=== PATIENT | female | born 1965 | race Hispanic/Latino ===

== ENCOUNTER 2021-09-03 11:25 | Inpatient (IN) | payer SELFPAY ==
[~2021-09-03] VITALS: Ht 154.9 cm; Wt 77.1 kg
[2021-09-03] MEDS ORDERED: SODIUM CHLORIDE 0.9% 1000ML 1,000 ML IV ONE (11:45)
[2021-09-03] MEDS ORDERED: CEFTRIAXONE 1 GM VIAL IV NR (11:45)
[2021-09-03] MEDS ORDERED: Vancomycin IV 1 GM in SODIUM CHLORIDE 0.9% 250ML 250 ML IV ONE (11:45)
[2021-09-03 12:05] LABS: BASOPHILS % 0.4 % (0.0-1.0); EOSINOPHILS # (AUTO) 0.1 (0.0-0.4); EOSINOPHILS % 1.2 % (0.0-6.0); HEMATOCRIT 37.2 % (34.2-44.1); LYMPHOCYTES # (AUTO) 2.1 (1.0-3.2); LYMPHOCYTES % 28.5 % (18.0-39.1); MEAN CORPUSCULAR HEMOGLOBIN 27.5 pg (28-32); MEAN CORPUSCULAR HGB CONC 32.3 g/dL (31-35); MEAN CORPUSCULAR VOLUME 85.3 fL (81-99); MONOCYTES # (AUTO) 0.4 (0.2-0.8); MONOCYTES % 5.3 % (4.4-11.3); NEUTROPHILS # (AUTO) 4.7 (2.1-6.9); NEUTROPHILS % 64.3 % (38.7-80.0); PLATELET COUNT 469 x10e3/uL (140-360); RED BLOOD COUNT 4.36 x10e6/uL (3.6-5.1)
[2021-09-03 12:14] LABS: INR 0.77; PARTIAL THROMBOPLASTIN TIME 24.1 seconds (23.8-35.5); PROTHROMBIN TIME 11.5 seconds (11.9-14.5)
[2021-09-03 12:24] LABS: ALBUMIN 2.3 g/dL (3.5-5.0); ALBUMIN/GLOBULIN RATIO 0.5 (0.8-2.0); ANION GAP 15.5 mmol/L (8-16); CALCIUM 8.9 mg/dL (8.4-10.2); CREATININE, SERUM 0.89 mg/dL (0.57-1.11); POTASSIUM 4.5 mmol/L (3.5-5.1)
[2021-09-03] MEDS ORDERED: SODIUM CHLORIDE 0.9% 100 ML ONE (12:31)
[2021-09-03] MEDS ORDERED: ONDANSETRON HCL INJ 2MG/ML 2ML 2 MG/ML VIAL IV PRN ×2 (14:15→17:15)
[2021-09-03] MEDS ORDERED: DEXTROSE 50% SYRINGE 50 ML IV PRN (14:15)
[2021-09-03] MEDS: INSULIN REGULAR, HUMAN 100 UNIT/1 ML SQ SCH ×2 (14:48→21:26)
[2021-09-03 15:27] VITALS: BP 173/91
[2021-09-03 15:47] VITALS: BP 173/91
[2021-09-03 16:00] VITALS: BP 173/91
[2021-09-03] MEDS ORDERED: ATORVASTATIN CA20 MG PO (16:11)
[2021-09-03] MEDS ORDERED: PIOGLITAZONE45 MG PO (16:11)
[2021-09-03] MEDS ORDERED: AMLODIPINE BESY10 MG PO (16:11)
[2021-09-03] MEDS ORDERED: LISINOPRIL10 MG PO (16:11)
[2021-09-03] MEDS ORDERED: HYDROCHLOROTHIA25 MG PO (16:11)
[2021-09-03] MEDS ORDERED: METFORMIN HCL850 MG PO (16:11)
[2021-09-03] MEDS ORDERED: HUMALOG MI100 UNIT/2 SQ (16:13)
[2021-09-03] MEDS ORDERED: ACETAMINOPHEN 325 MG TAB PO PRN ×2 (16:15→17:15)
[2021-09-03] MEDS ORDERED: HYDRALAZINE HCL 20 MG/ML VIAL IV PRN (17:15)
[2021-09-03] MEDS ORDERED: POLYETHYLENE GLYCOL 3350 17 GM PACK PO PRN (17:15)
[2021-09-03] MEDS ORDERED: TEMAZEPAM 7.5 MG CAP PO PRN (17:15)
[2021-09-03] MEDS: FAMOTIDINE 20 MG TAB PO SCH (17:57)
[2021-09-03] MEDS: ASCORBIC ACID 500 MG TAB PO SCH (17:57)
[2021-09-03] MEDS: MAGNESIUM OXIDE 400 MG TAB PO SCH (17:57)
[2021-09-03] MEDS: DOCUSATE SODIUM 100 MG CAP PO SCH (17:57)
[2021-09-03] MEDS: ZINC SULFATE 220 MG CAP PO SCH (17:57)
[2021-09-03] MEDS: OYST-CAL-D 500MG TABLET PO SCH (17:57)
[2021-09-03 20:00] VITALS: BP 165/92
[2021-09-03 21:00] VITALS: BP 165/92
[2021-09-03] MEDS ORDERED: INSULIN REGULAR, HUMAN 100 UNIT/1 ML SQ SCH (21:00)
[2021-09-03] MEDS: ATORVASTATIN 20 MG TAB PO SCH (21:22)
[2021-09-04] VITALS (11 sets, daily range): BP systolic 124–188; BP diastolic 61–97
[2021-09-04 05:18] LABS: BASOPHILS % 0.5 % (0.0-1.0); EOSINOPHILS # (AUTO) 0.1 (0.0-0.4); HEMATOCRIT 30.9 % (34.2-44.1); HEMOGLOBIN 10.1 g/dL (12.0-16.0); LYMPHOCYTES # (AUTO) 2.7 (1.0-3.2); LYMPHOCYTES % 36.1 % (18.0-39.1); MEAN CORPUSCULAR HEMOGLOBIN 27.7 pg (28-32); MEAN CORPUSCULAR HGB CONC 32.7 g/dL (31-35); MEAN CORPUSCULAR VOLUME 84.7 fL (81-99); MONOCYTES # (AUTO) 0.6 (0.2-0.8); NEUTROPHILS % 54.1 % (38.7-80.0); PLATELET COUNT 398 x10e3/uL (140-360); RED BLOOD COUNT 3.65 x10e6/uL (3.6-5.1); RED CELL DISTRIBUTION WIDTH 14.2 % (11.7-14.4)
[2021-09-04 05:35] LABS: ANION GAP 12.9 mmol/L (8-16); CALCIUM 8.1 mg/dL (8.4-10.2); CREATININE, SERUM 0.72 mg/dL (0.57-1.11); POTASSIUM 3.9 mmol/L (3.5-5.1)
[2021-09-04 05:59] LABS: CHOL/HDL RATIO 4.2 (3.0-3.6); MAGNESIUM 1.7 MG/DL (1.3-2.1); PHOSPHORUS 3.4 MG/DL (2.3-4.7)
[2021-09-04 06:19] LABS: THYROID STIMULATING HORMONE 2.594 uIU/mL (0.350-4.940)
[2021-09-04] MEDS: MAGNESIUM OXIDE 400 MG TAB PO SCH ×2 (08:21→17:17)
[2021-09-04] MEDS: MULTIVITAMINS/MINERALS TAB PO SCH (08:21)
[2021-09-04] MEDS: FAMOTIDINE 20 MG TAB PO SCH ×2 (08:21→16:27)
[2021-09-04] MEDS: METFORMIN HCL 850 MG TAB PO SCH ×3 (08:23→17:16)
[2021-09-04] MEDS: ASCORBIC ACID 500 MG TAB PO SCH ×2 (08:23→17:16)
[2021-09-04] MEDS: ZINC SULFATE 220 MG CAP PO SCH ×2 (08:23→17:18)
[2021-09-04] MEDS: DOCUSATE SODIUM 100 MG CAP PO SCH ×2 (08:23→17:17)
[2021-09-04] MEDS: LISINOPRIL 20 MG TAB PO SCH (08:23)
[2021-09-04] MEDS: PIOGLITAZONE HCL 45 MG TAB PO SCH (08:24)
[2021-09-04] MEDS: AMLODIPINE BESYLATE 10 MG TAB PO SCH (08:24)
[2021-09-04] MEDS: OYST-CAL-D 500MG TABLET PO SCH ×2 (08:24→17:16)
[2021-09-04] MEDS ORDERED: ONDANSETRON HCL 4 MG ORAL DISINTEGRATING TAB PO PRN (10:15)
[2021-09-04] MEDS: HYDROCHLOROTHIAZIDE 25 MG TAB PO SCH (11:41)
[2021-09-04] MEDS: INS LISP PRO/LISP HUMAN 75/25 100 UNITS/ML VIAL SC SCH (11:45)
[2021-09-04] MEDS: INSULIN REGULAR, HUMAN 100 UNIT/1 ML SQ SCH ×4 (11:48→20:40)
[2021-09-04] MEDS ORDERED: ENOXAPARIN 30 MG/0.3 ML SYR SC SCH (17:00)
[2021-09-04] MEDS: ATORVASTATIN 20 MG TAB PO SCH (20:35)
[2021-09-05 04:10] VITALS: BP 154/85
[2021-09-05 05:53] LABS: BASOPHILS % 0.5 % (0.0-1.0); EOSINOPHILS # (AUTO) 0.1 (0.0-0.4); EOSINOPHILS % 1.5 % (0.0-6.0); HEMATOCRIT 32.3 % (34.2-44.1); HEMOGLOBIN 10.3 g/dL (12.0-16.0); LYMPHOCYTES # (AUTO) 2.5 (1.0-3.2); LYMPHOCYTES % 42.2 % (18.0-39.1); MEAN CORPUSCULAR HEMOGLOBIN 27.5 pg (28-32); MEAN CORPUSCULAR HGB CONC 31.9 g/dL (31-35); MEAN CORPUSCULAR VOLUME 86.4 fL (81-99); MONOCYTES # (AUTO) 0.5 (0.2-0.8); MONOCYTES % 8.1 % (4.4-11.3); NEUTROPHILS # (AUTO) 2.8 (2.1-6.9); NEUTROPHILS % 47.5 % (38.7-80.0); PLATELET COUNT 408 x10e3/uL (140-360); RED BLOOD COUNT 3.74 x10e6/uL (3.6-5.1); RED CELL DISTRIBUTION WIDTH 14.5 % (11.7-14.4)
[2021-09-05 06:16] LABS: CALCIUM 8.7 mg/dL (8.4-10.2); CREATININE, SERUM 0.79 mg/dL (0.57-1.11)
[2021-09-05] MEDS: INS LISP PRO/LISP HUMAN 75/25 100 UNITS/ML VIAL SC SCH (07:30)
[2021-09-05] MEDS: INSULIN REGULAR, HUMAN 100 UNIT/1 ML SQ SCH ×2 (07:30→11:30)
[2021-09-05 08:10] VITALS: BP 188/88
[2021-09-05] MEDS: METFORMIN HCL 850 MG TAB PO SCH ×2 (08:55→12:00)
[2021-09-05] MEDS: PIOGLITAZONE HCL 45 MG TAB PO SCH (08:55)
[2021-09-05] MEDS: OYST-CAL-D 500MG TABLET PO SCH (08:55)
[2021-09-05] MEDS: FAMOTIDINE 20 MG TAB PO SCH (08:55)
[2021-09-05] MEDS: MULTIVITAMINS/MINERALS TAB PO SCH (08:55)
[2021-09-05] MEDS: DOCUSATE SODIUM 100 MG CAP PO SCH (08:56)
[2021-09-05] MEDS: AMLODIPINE BESYLATE 10 MG TAB PO SCH (08:56)
[2021-09-05] MEDS: ZINC SULFATE 220 MG CAP PO SCH (08:56)
[2021-09-05] MEDS: ASCORBIC ACID 500 MG TAB PO SCH (08:56)
[2021-09-05] MEDS: LISINOPRIL 20 MG TAB PO SCH (08:56)
[2021-09-05] MEDS: MAGNESIUM OXIDE 400 MG TAB PO SCH (08:57)
[2021-09-05] MEDS: HYDROCHLOROTHIAZIDE 25 MG TAB PO SCH (08:57)
[2021-09-05 11:46] VITALS: BP 186/88
[2021-09-05] MEDS ORDERED: DOXYCYCLINE HY100 MG PO (13:23)
[2021-09-05 15:37] VITALS: BP 145/71
== END 2021-09-05 16:21 | disposition home or self-care (01) | DRG 638 ==
LOC: ER 11:30 → ERHOLD 14:14 → MED/SURG3 15:32 → OBSVTOIN 09-04 10:20
PROVIDERS: ADMIT Internal Medicine; ATTEND Internal Medicine
DX: E11.621 Type 2 diabetes mellitus with foot ulcer (principal); E87.1 Hypo-osmolality and hyponatremia; L03.116 Cellulitis of left lower limb; L97.528 Non-pressure chronic ulcer of other part of left foot with other specified severity; E11.69 Type 2 diabetes mellitus with other specified complication; S92.422B Displaced fracture of distal phalanx of left great toe, initial encounter for open fracture; W20.8XXA Other cause of strike by thrown, projected or falling object, initial encounter; Y93.9 Activity, unspecified; E11.42 Type 2 diabetes mellitus with diabetic polyneuropathy; Z79.899 Other long term (current) drug therapy; E78.49 Other hyperlipidemia; Z20.822 Contact with and (suspected) exposure to COVID-19; E11.65 Type 2 diabetes mellitus with hyperglycemia
CPT/HCPCS: 0223U; 36415; 80048; 80053; 80061; 82948; 83036; 83605; 83735; 84100; 84443; 85025; 85610; 85730; 87040; 93925; 94799; 97139; 99251; 99284; G0378; J0360; J0696; J1650; J1815; J1817; J3370; J7030; J7050

== ENCOUNTER 2022-04-01 11:16 | Inpatient (IN) | payer SELFPAY ==
[~2022-04-01] VITALS: Ht 152.4 cm; Wt 85.0 kg
[~2022-04-01 11:16] MED LIST: AMLODIPINE BESY10 MG PO; ATORVASTATIN CA20 MG PO; DOXYCYCLINE HY100 MG PO; HUMALOG MI100 UNIT/2 SQ; HYDROCHLOROTHIA25 MG PO; LISINOPRIL10 MG PO; MEDROL4 M2 PO; METFORMIN HCL850 MG PO; PIOGLITAZONE45 MG PO
[2022-04-01 13:58] LABS: BASOPHILS % 0.6 % (0.0-1.0); EOSINOPHILS # (AUTO) 0.1 (0.0-0.4); EOSINOPHILS % 0.9 % (0.0-6.0); HEMATOCRIT 30.1 % (34.2-44.1); HEMOGLOBIN 9.4 g/dL (12.0-16.0); LYMPHOCYTES # (AUTO) 1.8 (1.0-3.2); LYMPHOCYTES % 27.4 % (18.0-39.1); MEAN CORPUSCULAR HGB CONC 31.2 g/dL (31-35); MEAN CORPUSCULAR VOLUME 86.5 fL (81-99); MONOCYTES # (AUTO) 0.4 (0.2-0.8); MONOCYTES % 5.2 % (4.4-11.3); NEUTROPHILS # (AUTO) 4.4 (2.1-6.9); NEUTROPHILS % 65.8 % (38.7-80.0); PLATELET COUNT 297 x10e3/uL (140-360); RED BLOOD COUNT 3.48 x10e6/uL (3.6-5.1); RED CELL DISTRIBUTION WIDTH 13.7 % (11.7-14.4)
[2022-04-01 14:14] LABS: INR 0.87; PARTIAL THROMBOPLASTIN TIME 27.7 seconds (23.8-35.5)
[2022-04-01 14:18] LABS: CLARITY,URINE CLEAR (CLEAR); COLOR,URINE YELLOW (YELLOW)
[2022-04-01 14:19] LABS: KETONES,URINE NEGATIVE (NEGATIVE); LEUKOCYTE ESTERASE ,URINE NEGATIVE (NEGATIVE); NITRITE,URINE NEGATIVE (NEGATIVE); PROTEIN,URINE DIPSTICK >=300 (NEGATIVE); URINE UROBILINOGEN 0.2 mg/dL (0.2 - 1)
[2022-04-01 14:24] LABS: ALBUMIN 2.7 g/dL (3.5-5.0); ALBUMIN/GLOBULIN RATIO 0.7 (0.8-2.0); ANION GAP 13.8 mmol/L (8-16); BACTERIA,URINE FEW /HPF; CALCIUM 9.6 mg/dL (8.4-10.2); CREATININE, SERUM 0.87 mg/dL (0.57-1.11); EPITHELIAL CELLS,URINE FEW /LPF; MAGNESIUM 1.8 MG/DL (1.3-2.1); POTASSIUM 4.8 mmol/L (3.5-5.1); WBC,URINE (MAN) 0-5 /HPF (0-5)
[2022-04-01 14:31] LABS: CREATINE KINASE MB 4.3 ng/mL (0-5.0)
[2022-04-01] MEDS ORDERED: IOPAMIDOL 370 MG/ML 100 ML INFUS..BTL INJ ONE (15:39)
[2022-04-01] MEDS ORDERED: ONDANSETRON HCL INJ 2MG/ML 2ML 2 MG/ML VIAL IV PRN (16:45)
[2022-04-01] MEDS ORDERED: FUROSEMIDE INJ 10 MG/ML 4 ML VIAL IV ONE (17:00)
[2022-04-01] MEDS ORDERED: DEXTROSE 50% SYRINGE 50 ML IV PRN (17:15)
[2022-04-01] MEDS: FAMOTIDINE 20 MG/2 ML VIAL IV SCH (17:32)
[2022-04-01] MEDS ORDERED: NITROGLYCERIN 2% OINT 1 GM PKT TOP SCH (18:00)
[2022-04-01 18:19] LABS: ALBUMIN 2.7 g/dL (3.5-5.0); ALBUMIN/GLOBULIN RATIO 0.7 (0.8-2.0); ANION GAP 12.7 mmol/L (8-16); CALCIUM 9.3 mg/dL (8.4-10.2); CREATININE, SERUM 0.84 mg/dL (0.57-1.11); POTASSIUM 4.7 mmol/L (3.5-5.1)
[2022-04-01 18:27] LABS: CREATINE KINASE MB 4.2 ng/mL (0-5.0)
[2022-04-01] MEDS: ATORVASTATIN 20 MG TAB PO SCH (21:11)
[2022-04-01] MEDS: INSULIN REGULAR, HUMAN 100 UNIT/1 ML SQ SCH (21:50)
[2022-04-01] MEDS: INSULIN GLARGINE 100 UNITS/ML VIAL SQ SCH (21:50)
[2022-04-02 00:27] LABS: CREATINE KINASE MB 3.7 ng/mL (0-5.0)
[2022-04-02] MEDS: FAMOTIDINE 20 MG/2 ML VIAL IV SCH ×2 (04:43→16:57)
[2022-04-02 06:28] LABS: BASOPHILS # (AUTO) 0.1 (0.0-0.1); EOSINOPHILS # (AUTO) 0.1 (0.0-0.4); EOSINOPHILS % 1.9 % (0.0-6.0); HEMATOCRIT 26.3 % (34.2-44.1); HEMOGLOBIN 8.8 g/dL (12.0-16.0); LYMPHOCYTES % 37.6 % (18.0-39.1); MEAN CORPUSCULAR HEMOGLOBIN 29.5 pg (28-32); MEAN CORPUSCULAR HGB CONC 33.5 g/dL (31-35); MEAN CORPUSCULAR VOLUME 88.3 fL (81-99); MONOCYTES # (AUTO) 0.5 (0.2-0.8); MONOCYTES % 8.7 % (4.4-11.3); NEUTROPHILS # (AUTO) 2.7 (2.1-6.9); NEUTROPHILS % 50.6 % (38.7-80.0); PLATELET COUNT 243 x10e3/uL (140-360); RED BLOOD COUNT 2.98 x10e6/uL (3.6-5.1); RED CELL DISTRIBUTION WIDTH 14.6 % (11.7-14.4)
[2022-04-02 06:54] LABS: ALBUMIN 2.5 g/dL (3.5-5.0); ALBUMIN/GLOBULIN RATIO 0.7 (0.8-2.0); ANION GAP 12.2 mmol/L (8-16); CALCIUM 9.1 mg/dL (8.4-10.2); CREATININE, SERUM 0.83 mg/dL (0.57-1.11); POTASSIUM 4.2 mmol/L (3.5-5.1)
[2022-04-02] MEDS: INSULIN REGULAR, HUMAN 100 UNIT/1 ML SQ SCH ×4 (07:13→21:00)
[2022-04-02] MEDS: LISINOPRIL 20 MG TAB PO SCH (09:27)
[2022-04-02] MEDS: AMLODIPINE BESYLATE 10 MG TAB PO SCH (09:27)
[2022-04-02 11:58] LABS: BODY FLUID APPEARANCE SL.CLOUDY; BODY FLUID COLOR YELLOW; BODY FLUID TYPE PLEURAL; RBC,BODY FLUID 0 cells/uL; WBC,BODY FLUID 150 cells/uL
[2022-04-02] MEDS ORDERED: POLYETHYLENE GLYCOL 3350 17 GM PACK PO PRN (12:30)
[2022-04-02] MEDS ORDERED: TEMAZEPAM 15 MG CAP PO PRN (12:30)
[2022-04-02 13:10] VITALS: BP 148/80
[2022-04-02 13:46] LABS: LYMPHOCYTES,BODY FLUID 30 %; MONO/MACROPHG,BODY FLUID 29 %; NEUTROPHILS,BODY FLUID 1 %; OTHER CELLS,BODY FLUID 40 %
[2022-04-02 16:11] VITALS: BP 176/85
[2022-04-02] MEDS: MAGNESIUM OXIDE 400 MG TAB PO SCH (16:56)
[2022-04-02] MEDS: ZINC SULFATE 50 MG CAP PO SCH (16:57)
[2022-04-02] MEDS: ASCORBIC ACID 500 MG TAB PO SCH (16:57)
[2022-04-02] MEDS: DOCUSATE SODIUM 100 MG CAP PO SCH (16:57)
[2022-04-02] MEDS: FUROSEMIDE INJ 10 MG/ML 4 ML VIAL IV SCH (16:57)
[2022-04-02] MEDS: OYST-CAL-D 500MG TABLET PO SCH (16:58)
[2022-04-02 17:40] LABS: CREATININE,URINE RANDOM 26.06 mg/dL (47-110)
[2022-04-02 18:12] LABS: TOTAL PROTEIN, URINE 271.2 mg/dL (1-14)
[2022-04-02 20:00] VITALS: BP 169/79
[2022-04-02] MEDS: ATORVASTATIN 20 MG TAB PO SCH (20:33)
[2022-04-02] MEDS: ENOXAPARIN 30 MG/0.3 ML SYR SC SCH (20:33)
[2022-04-02] MEDS: INSULIN GLARGINE 100 UNITS/ML VIAL SQ SCH (21:00)
[2022-04-02 21:45] LABS: TOTAL PROTEIN 24HR, URINE 7190.1 mg/24hr (50-100); TOTAL PROTEIN, URINE 266.3 mg/dL (1-14)
[2022-04-02 23:53] VITALS: BP 164/76
[2022-04-03] VITALS (19 sets, daily range): BP systolic 119–173; BP diastolic 67–144
[2022-04-03] MEDS: METOPROLOL TARTRATE INJ 1 MG/ML VIAL IV PRN (01:47)
[2022-04-03] MEDS: ACETAMINOPHEN 325 MG TAB PO PRN ×2 (02:05→12:57)
[2022-04-03] MEDS: FAMOTIDINE 20 MG/2 ML VIAL IV SCH ×2 (05:22→17:36)
[2022-04-03 05:45] LABS: BASOPHILS % 0.6 % (0.0-1.0); EOSINOPHILS # (AUTO) 0.1 (0.0-0.4); EOSINOPHILS % 1.3 % (0.0-6.0); HEMATOCRIT 28.1 % (34.2-44.1); HEMOGLOBIN 8.9 g/dL (12.0-16.0); LYMPHOCYTES # (AUTO) 0.9 (1.0-3.2); LYMPHOCYTES % 12.8 % (18.0-39.1); MEAN CORPUSCULAR HEMOGLOBIN 27.3 pg (28-32); MEAN CORPUSCULAR HGB CONC 31.7 g/dL (31-35); MEAN CORPUSCULAR VOLUME 86.2 fL (81-99); MONOCYTES # (AUTO) 0.5 (0.2-0.8); MONOCYTES % 7.6 % (4.4-11.3); NEUTROPHILS # (AUTO) 5.2 (2.1-6.9); NEUTROPHILS % 77.4 % (38.7-80.0); PLATELET COUNT 276 x10e3/uL (140-360); RED BLOOD COUNT 3.26 x10e6/uL (3.6-5.1); RED CELL DISTRIBUTION WIDTH 13.8 % (11.7-14.4)
[2022-04-03 06:07] LABS: ANION GAP 10.1 mmol/L (8-16); CALCIUM 8.4 mg/dL (8.4-10.2); CREATININE, SERUM 0.87 mg/dL (0.57-1.11); MAGNESIUM 1.5 MG/DL (1.3-2.1); PHOSPHORUS 3.6 MG/DL (2.3-4.7); POTASSIUM 4.1 mmol/L (3.5-5.1)
[2022-04-03] MEDS ORDERED: FUROSEMIDE INJ 10 MG/ML 4 ML VIAL IV ONE (06:15)
[2022-04-03] MEDS ORDERED: FUROSEMIDE INJ 10 MG/ML 4 ML VIAL ONE (06:28)
[2022-04-03 06:52] LABS: FERRITIN 24.36 ng/mL (4.63-204.00)
[2022-04-03] MEDS ORDERED: NITROGLYCERIN 2% OINT 1 GM PKT TOP ONE (07:00)
[2022-04-03] MEDS ORDERED: LABETALOL HCL 5 MG/ML 20ML VIAL IV STA (07:09)
[2022-04-03] MEDS ORDERED: LORAZEPAM INJ 2 MG/ML VIAL IV ONE (07:30)
[2022-04-03] MEDS: INSULIN REGULAR, HUMAN 100 UNIT/1 ML SQ SCH ×4 (07:30→20:44)
[2022-04-03] MEDS: LABETALOL HCL 5 MG/ML 20ML VIAL IV ONE ×2 (07:42→08:25)
[2022-04-03] MEDS ORDERED: NITROGLYCERIN/D5W 200 MCG/ML 250 ML IV ONE (07:45)
[2022-04-03] MEDS: ALBUMIN 25% 25GM 100ML 0.25 GM/ML BTL IV SCH ×3 (08:12→18:31)
[2022-04-03] MEDS: FUROSEMIDE INJ 10 MG/ML 4 ML VIAL IV SCH ×2 (08:26→17:36)
[2022-04-03] MEDS: ZINC SULFATE 50 MG CAP PO SCH ×2 (09:00→17:36)
[2022-04-03] MEDS: MULTIVITAMINS/MINERALS TAB PO SCH (09:00)
[2022-04-03] MEDS: OYST-CAL-D 500MG TABLET PO SCH ×2 (09:00→17:36)
[2022-04-03] MEDS: ASCORBIC ACID 500 MG TAB PO SCH ×2 (09:00→17:36)
[2022-04-03] MEDS: DOCUSATE SODIUM 100 MG CAP PO SCH ×2 (09:00→17:36)
[2022-04-03] MEDS: MAGNESIUM OXIDE 400 MG TAB PO SCH ×2 (09:00→17:36)
[2022-04-03] MEDS: HYDRALAZINE HCL 25 MG TAB PO SCH ×3 (09:00→21:00)
[2022-04-03 09:58] LABS: ABG HCO3 30 mmol/L (22-26); ABG PCO2 48 mmHg (35-45); ABG PO2 67 mmHg (80-105); ABG TCO2 31
[2022-04-03] MEDS: AMLODIPINE BESYLATE 10 MG TAB PO SCH (09:59)
[2022-04-03] MEDS: METOPROLOL SUCCINATE 25 MG TAB XL PO SCH ×2 (10:01→20:40)
[2022-04-03] MEDS: LISINOPRIL 20 MG TAB PO SCH (10:01)
[2022-04-03] MEDS: ENOXAPARIN 30 MG/0.3 ML SYR SC SCH ×2 (12:55→20:45)
[2022-04-03] MEDS ORDERED: MAGNESIUM SULFATE 2GM/50ML 50 ML IV ONE (16:00)
[2022-04-03] MEDS ORDERED: ACETAMINOPHEN 1000 MG/100 ML IV ONE (18:00)
[2022-04-03] MEDS ORDERED: Vancomycin IV 1 GM in SODIUM CHLORIDE 0.9% 250ML 250 ML IV ONE (18:15)
[2022-04-03 20:05] LABS: CLARITY,URINE HAZY (CLEAR); COLOR,URINE YELLOW (YELLOW); KETONES,URINE TRACE (NEGATIVE); LEUKOCYTE ESTERASE ,URINE NEGATIVE (NEGATIVE); NITRITE,URINE NEGATIVE (NEGATIVE); PROTEIN,URINE DIPSTICK >=300 (NEGATIVE); URINE UROBILINOGEN 0.2 mg/dL (0.2 - 1)
[2022-04-03 20:12] LABS: BACTERIA,URINE MANY /HPF; RBC,URINE 21-50 /HPF (0-5)
[2022-04-03] MEDS: ATORVASTATIN 20 MG TAB PO SCH (20:39)
[2022-04-03] MEDS: INSULIN GLARGINE 100 UNITS/ML VIAL SQ SCH (20:43)
[2022-04-04] VITALS (26 sets, daily range): BP systolic 93–164; BP diastolic 57–92
[2022-04-04] MEDS: FAMOTIDINE 20 MG/2 ML VIAL IV SCH ×2 (04:02→16:59)
[2022-04-04 07:15] LABS: BASOPHILS % 0.4 % (0.0-1.0); EOSINOPHILS % 0.6 % (0.0-6.0); HEMOGLOBIN 7.1 g/dL (12.0-16.0); LYMPHOCYTES # (AUTO) 1.5 (1.0-3.2); LYMPHOCYTES % 31.3 % (18.0-39.1); MEAN CORPUSCULAR HEMOGLOBIN 27.7 pg (28-32); MEAN CORPUSCULAR HGB CONC 32.3 g/dL (31-35); MEAN CORPUSCULAR VOLUME 85.9 fL (81-99); MONOCYTES # (AUTO) 0.4 (0.2-0.8); MONOCYTES % 8.5 % (4.4-11.3); NEUTROPHILS # (AUTO) 2.8 (2.1-6.9); NEUTROPHILS % 58.8 % (38.7-80.0); PLATELET COUNT 224 x10e3/uL (140-360); RED BLOOD COUNT 2.56 x10e6/uL (3.6-5.1); RED CELL DISTRIBUTION WIDTH 14.1 % (11.7-14.4)
[2022-04-04 07:29] LABS: ALBUMIN 2.5 g/dL (3.5-5.0); ALBUMIN/GLOBULIN RATIO 0.9 (0.8-2.0); CALCIUM 8.3 mg/dL (8.4-10.2); CREATININE, SERUM 1.15 mg/dL (0.57-1.11)
[2022-04-04] MEDS: INSULIN REGULAR, HUMAN 100 UNIT/1 ML SQ SCH ×4 (07:30→20:30)
[2022-04-04 07:57] LABS: BAND NEUTROPHILS % (MANUAL) 4 %; LYMPHOCYTES % (MANUAL) 28 % (19-48); MONOCYTES % (MANUAL) 5 % (3.4-9.0); NEUTROPHILS % (MANUAL) 63 % (40-74); PLATELET ESTIMATE ADEQUATE; PLATELET MORPHOLOGY COMMENT NORMAL; RBC MORPHOLOGY COMMENT NORMAL
[2022-04-04] MEDS: MULTIVITAMINS/MINERALS TAB PO SCH (08:30)
[2022-04-04] MEDS: ASCORBIC ACID 500 MG TAB PO SCH ×2 (08:30→17:00)
[2022-04-04] MEDS: SODIUM FERRIC GLUCONATE COMPLX 125 MG in SODIUM CHLORIDE 0.9% 100 ML IV SCH (08:30)
[2022-04-04] MEDS: MAGNESIUM OXIDE 400 MG TAB PO SCH ×2 (08:30→17:00)
[2022-04-04] MEDS: OYST-CAL-D 500MG TABLET PO SCH ×2 (08:30→17:00)
[2022-04-04] MEDS: ZINC SULFATE 50 MG CAP PO SCH ×2 (08:30→17:00)
[2022-04-04] MEDS: ENOXAPARIN 30 MG/0.3 ML SYR SC SCH ×2 (08:31→20:27)
[2022-04-04] MEDS: FUROSEMIDE INJ 10 MG/ML 4 ML VIAL IV SCH ×2 (08:31→17:00)
[2022-04-04] MEDS: AMLODIPINE BESYLATE 10 MG TAB PO SCH (08:31)
[2022-04-04] MEDS: LISINOPRIL 20 MG TAB PO SCH (08:33)
[2022-04-04] MEDS: ACETAMINOPHEN 325 MG TAB PO PRN (08:35)
[2022-04-04] MEDS: METOPROLOL SUCCINATE 25 MG TAB XL PO SCH (08:45)
[2022-04-04] MEDS: DOCUSATE SODIUM 100 MG CAP PO SCH ×2 (08:45→16:59)
[2022-04-04] MEDS ORDERED: HYDRALAZINE HCL 25 MG TAB PO SCH (09:00)
[2022-04-04] MEDS: METOLAZONE 5 MG TAB PO SCH (17:13)
[2022-04-04] MEDS: ATORVASTATIN 20 MG TAB PO SCH (20:27)
[2022-04-04] MEDS: INSULIN GLARGINE 100 UNITS/ML VIAL SQ SCH (20:29)
[2022-04-05] VITALS (23 sets, daily range): BP systolic 105–170; BP diastolic 65–111
[2022-04-05] MEDS: ACETAMINOPHEN 325 MG TAB PO PRN (03:02)
[2022-04-05] MEDS: FAMOTIDINE 20 MG/2 ML VIAL IV SCH ×2 (05:04→16:50)
[2022-04-05 06:36] LABS: BASOPHILS % 0.3 % (0.0-1.0); EOSINOPHILS # (AUTO) 0.2 (0.0-0.4); EOSINOPHILS % 1.8 % (0.0-6.0); HEMATOCRIT 23.9 % (34.2-44.1); HEMOGLOBIN 7.7 g/dL (12.0-16.0); LYMPHOCYTES # (AUTO) 2.1 (1.0-3.2); LYMPHOCYTES % 22.4 % (18.0-39.1); MEAN CORPUSCULAR HGB CONC 32.2 g/dL (31-35); MEAN CORPUSCULAR VOLUME 83.9 fL (81-99); MONOCYTES # (AUTO) 0.6 (0.2-0.8); MONOCYTES % 5.7 % (4.4-11.3); NEUTROPHILS # (AUTO) 6.6 (2.1-6.9); NEUTROPHILS % 69.4 % (38.7-80.0); PLATELET COUNT 250 x10e3/uL (140-360); RED BLOOD COUNT 2.85 x10e6/uL (3.6-5.1)
[2022-04-05 07:13] LABS: ALBUMIN 2.2 g/dL (3.5-5.0); ALBUMIN/GLOBULIN RATIO 0.7 (0.8-2.0); ANION GAP 12.5 mmol/L (8-16); CALCIUM 8.2 mg/dL (8.4-10.2); CREATININE, SERUM 1.21 mg/dL (0.57-1.11); POTASSIUM 3.5 mmol/L (3.5-5.1)
[2022-04-05 07:14] LABS: PHOSPHORUS 2.4 MG/DL (2.3-4.7)
[2022-04-05] MEDS: INSULIN REGULAR, HUMAN 100 UNIT/1 ML SQ SCH ×4 (07:30→21:00)
[2022-04-05] MEDS: ASCORBIC ACID 500 MG TAB PO SCH ×2 (08:36→16:49)
[2022-04-05] MEDS: METOLAZONE 5 MG TAB PO SCH ×2 (08:36→16:49)
[2022-04-05] MEDS: MAGNESIUM OXIDE 400 MG TAB PO SCH ×2 (08:36→16:49)
[2022-04-05] MEDS: MULTIVITAMINS/MINERALS TAB PO SCH (08:36)
[2022-04-05] MEDS: SODIUM FERRIC GLUCONATE COMPLX 125 MG in SODIUM CHLORIDE 0.9% 100 ML IV SCH (08:36)
[2022-04-05] MEDS: FUROSEMIDE INJ 10 MG/ML 4 ML VIAL IV SCH ×2 (08:36→16:48)
[2022-04-05] MEDS: OYST-CAL-D 500MG TABLET PO SCH ×2 (08:36→16:49)
[2022-04-05] MEDS: DOCUSATE SODIUM 100 MG CAP PO SCH ×2 (08:36→16:49)
[2022-04-05] MEDS: ZINC SULFATE 50 MG CAP PO SCH ×2 (08:37→16:49)
[2022-04-05] MEDS: METOPROLOL SUCCINATE 25 MG TAB XL PO SCH (08:37)
[2022-04-05] MEDS: LISINOPRIL 20 MG TAB PO SCH (08:37)
[2022-04-05] MEDS: ENOXAPARIN 30 MG/0.3 ML SYR SC SCH ×2 (08:38→21:03)
[2022-04-05] MEDS: AMLODIPINE BESYLATE 10 MG TAB PO SCH (08:38)
[2022-04-05] MEDS: INSULIN GLARGINE 100 UNITS/ML VIAL SQ SCH (21:00)
[2022-04-05] MEDS: ATORVASTATIN 20 MG TAB PO SCH (21:02)
[2022-04-06] VITALS (20 sets, daily range): BP systolic 120–184; BP diastolic 63–148
[2022-04-06] MEDS: METOPROLOL TARTRATE INJ 1 MG/ML VIAL IV PRN (00:06)
[2022-04-06 05:14] LABS: ANION GAP 13.2 mmol/L (8-16); CALCIUM 8.7 mg/dL (8.4-10.2); CREATININE, SERUM 0.9 mg/dL (0.57-1.11); POTASSIUM 3.2 mmol/L (3.5-5.1)
[2022-04-06] MEDS: FAMOTIDINE 20 MG/2 ML VIAL IV SCH ×2 (05:18→17:08)
[2022-04-06] MEDS: LABETALOL HCL 5 MG/ML 20ML VIAL IV PRN ×2 (06:28→12:47)
[2022-04-06] MEDS: MULTIVITAMINS/MINERALS TAB PO SCH (08:27)
[2022-04-06] MEDS: INSULIN REGULAR, HUMAN 100 UNIT/1 ML SQ SCH ×4 (08:27→20:45)
[2022-04-06] MEDS: DOCUSATE SODIUM 100 MG CAP PO SCH ×2 (08:27→17:09)
[2022-04-06] MEDS: METOPROLOL SUCCINATE 25 MG TAB XL PO SCH (08:27)
[2022-04-06] MEDS: ZINC SULFATE 50 MG CAP PO SCH ×2 (08:27→17:09)
[2022-04-06] MEDS: OYST-CAL-D 500MG TABLET PO SCH ×2 (08:27→17:09)
[2022-04-06] MEDS: LISINOPRIL 20 MG TAB PO SCH (08:28)
[2022-04-06] MEDS: MAGNESIUM OXIDE 400 MG TAB PO SCH ×2 (08:28→17:09)
[2022-04-06] MEDS: AMLODIPINE BESYLATE 10 MG TAB PO SCH (08:28)
[2022-04-06] MEDS: SODIUM FERRIC GLUCONATE COMPLX 125 MG in SODIUM CHLORIDE 0.9% 100 ML IV SCH (08:29)
[2022-04-06] MEDS: ASCORBIC ACID 500 MG TAB PO SCH ×2 (08:29→17:08)
[2022-04-06] MEDS: ENOXAPARIN 30 MG/0.3 ML SYR SC SCH ×2 (08:29→20:19)
[2022-04-06] MEDS ORDERED: POTASSIUM CHLORIDE 20 MEQ TAB CR PO ONE (12:00)
[2022-04-06] MEDS: HYDRALAZINE HCL 25 MG TAB PO SCH ×3 (12:47→20:18)
[2022-04-06 14:12] LABS: ALPHA 2 GLOBULIN URINE PEP 12.4 % (.)
[2022-04-06] MEDS: ATORVASTATIN 20 MG TAB PO SCH (20:18)
[2022-04-06] MEDS: INSULIN GLARGINE 100 UNITS/ML VIAL SQ SCH (20:44)
[2022-04-07] VITALS (13 sets, daily range): BP systolic 115–177; BP diastolic 70–83
[2022-04-07] MEDS: FAMOTIDINE 20 MG/2 ML VIAL IV SCH ×2 (05:30→08:41)
[2022-04-07] MEDS: ASCORBIC ACID 500 MG TAB PO SCH ×2 (08:38→16:56)
[2022-04-07] MEDS: HYDRALAZINE HCL 25 MG TAB PO SCH ×3 (08:39→20:37)
[2022-04-07] MEDS: LISINOPRIL 20 MG TAB PO SCH (08:39)
[2022-04-07] MEDS: AMLODIPINE BESYLATE 10 MG TAB PO SCH (08:40)
[2022-04-07] MEDS: MAGNESIUM OXIDE 400 MG TAB PO SCH ×2 (08:40→16:58)
[2022-04-07] MEDS: ZINC SULFATE 50 MG CAP PO SCH ×2 (08:40→16:58)
[2022-04-07] MEDS: INSULIN REGULAR, HUMAN 100 UNIT/1 ML SQ SCH ×4 (08:43→20:37)
[2022-04-07] MEDS: DOCUSATE SODIUM 100 MG CAP PO SCH ×2 (08:43→16:58)
[2022-04-07] MEDS: ENOXAPARIN 30 MG/0.3 ML SYR SC SCH ×2 (08:44→20:36)
[2022-04-07] MEDS: MULTIVITAMINS/MINERALS TAB PO SCH (08:45)
[2022-04-07] MEDS: OYST-CAL-D 500MG TABLET PO SCH ×2 (08:45→16:59)
[2022-04-07 08:47] LABS: BASOPHILS # (AUTO) 0.1 (0.0-0.1); BASOPHILS % 0.6 % (0.0-1.0); EOSINOPHILS # (AUTO) 0.2 (0.0-0.4); EOSINOPHILS % 2.4 % (0.0-6.0); HEMATOCRIT 26.2 % (34.2-44.1); HEMOGLOBIN 8.4 g/dL (12.0-16.0); LYMPHOCYTES # (AUTO) 2.6 (1.0-3.2); LYMPHOCYTES % 32.6 % (18.0-39.1); MEAN CORPUSCULAR HEMOGLOBIN 27.4 pg (28-32); MEAN CORPUSCULAR HGB CONC 32.1 g/dL (31-35); MEAN CORPUSCULAR VOLUME 85.3 fL (81-99); MONOCYTES # (AUTO) 0.9 (0.2-0.8); MONOCYTES % 11.9 % (4.4-11.3); NEUTROPHILS # (AUTO) 4.1 (2.1-6.9); NEUTROPHILS % 51.9 % (38.7-80.0); PLATELET COUNT 295 x10e3/uL (140-360); RED BLOOD COUNT 3.07 x10e6/uL (3.6-5.1); RED CELL DISTRIBUTION WIDTH 14.1 % (11.7-14.4)
[2022-04-07] MEDS ORDERED: METOPROLOL SUCCINATE 50 MG TAB XL PO SCH (09:00)
[2022-04-07 09:12] LABS: ANION GAP 9.1 mmol/L (8-16); CALCIUM 8.7 mg/dL (8.4-10.2); CREATININE, SERUM 0.79 mg/dL (0.57-1.11); POTASSIUM 4.1 mmol/L (3.5-5.1)
[2022-04-07] MEDS ORDERED: HYDRALAZINE HCL 20 MG/ML VIAL IV PRN (12:15)
[2022-04-07] MEDS ORDERED: CARVEDILOL 12.5 MG TAB PO ONE (12:30)
[2022-04-07] MEDS ORDERED: SODIUM CHLORIDE 0.9% 250ML 250 ML ONE (15:53)
[2022-04-07] MEDS: FUROSEMIDE 40 MG TAB PO SCH (16:56)
[2022-04-07] MEDS: METOLAZONE 5 MG TAB PO SCH (16:58)
[2022-04-07] MEDS: ATORVASTATIN 20 MG TAB PO SCH (20:35)
[2022-04-07] MEDS: INSULIN GLARGINE 100 UNITS/ML VIAL SQ SCH (20:37)
[2022-04-08] VITALS (8 sets, daily range): BP systolic 122–161; BP diastolic 62–85
[2022-04-08 05:45] LABS: BASOPHILS % 0.4 % (0.0-1.0); EOSINOPHILS # (AUTO) 0.2 (0.0-0.4); EOSINOPHILS % 2.3 % (0.0-6.0); HEMATOCRIT 25.3 % (34.2-44.1); HEMOGLOBIN 7.8 g/dL (12.0-16.0); LYMPHOCYTES # (AUTO) 2.9 (1.0-3.2); LYMPHOCYTES % 35.1 % (18.0-39.1); MEAN CORPUSCULAR HEMOGLOBIN 26.8 pg (28-32); MEAN CORPUSCULAR HGB CONC 30.8 g/dL (31-35); MEAN CORPUSCULAR VOLUME 86.9 fL (81-99); MONOCYTES % 11.6 % (4.4-11.3); NEUTROPHILS # (AUTO) 4.1 (2.1-6.9); NEUTROPHILS % 49.6 % (38.7-80.0); PLATELET COUNT 287 x10e3/uL (140-360); RED BLOOD COUNT 2.91 x10e6/uL (3.6-5.1); RED CELL DISTRIBUTION WIDTH 14.4 % (11.7-14.4)
[2022-04-08] MEDS: FAMOTIDINE 20 MG/2 ML VIAL IV SCH ×2 (05:49→16:34)
[2022-04-08] MEDS: FUROSEMIDE 40 MG TAB PO SCH ×2 (05:49→16:42)
[2022-04-08 06:04] LABS: ALBUMIN 2.1 g/dL (3.5-5.0); ALBUMIN/GLOBULIN RATIO 0.6 (0.8-2.0); ANION GAP 13.3 mmol/L (8-16); CALCIUM 8.4 mg/dL (8.4-10.2); CREATININE, SERUM 1.18 mg/dL (0.57-1.11); POTASSIUM 4.3 mmol/L (3.5-5.1)
[2022-04-08] MEDS: ZINC SULFATE 50 MG CAP PO SCH ×2 (08:30→16:42)
[2022-04-08] MEDS: OYST-CAL-D 500MG TABLET PO SCH ×2 (08:30→16:42)
[2022-04-08] MEDS: MAGNESIUM OXIDE 400 MG TAB PO SCH ×2 (08:31→16:44)
[2022-04-08] MEDS: MULTIVITAMINS/MINERALS TAB PO SCH (08:31)
[2022-04-08] MEDS: POTASSIUM CHLORIDE 20 MEQ TAB CR PO SCH (08:31)
[2022-04-08] MEDS: ASCORBIC ACID 500 MG TAB PO SCH ×2 (08:31→16:43)
[2022-04-08] MEDS: DOCUSATE SODIUM 100 MG CAP PO SCH ×2 (08:32→16:41)
[2022-04-08] MEDS: METOLAZONE 5 MG TAB PO SCH ×2 (08:32→16:42)
[2022-04-08] MEDS: AMLODIPINE BESYLATE 10 MG TAB PO SCH (08:32)
[2022-04-08] MEDS: LISINOPRIL 20 MG TAB PO SCH (08:33)
[2022-04-08] MEDS: HYDRALAZINE HCL 25 MG TAB PO SCH ×3 (08:34→21:23)
[2022-04-08] MEDS: ENOXAPARIN 30 MG/0.3 ML SYR SC SCH ×2 (08:36→21:22)
[2022-04-08] MEDS: CARVEDILOL 12.5 MG TAB PO SCH ×2 (08:36→16:43)
[2022-04-08] MEDS: INSULIN REGULAR, HUMAN 100 UNIT/1 ML SQ SCH ×5 (08:37→21:00)
[2022-04-08 13:41] LABS: ANION GAP 13.7 mmol/L (8-16); CALCIUM 8.6 mg/dL (8.4-10.2); CREATININE, SERUM 1.32 mg/dL (0.57-1.11); POTASSIUM 4.7 mmol/L (3.5-5.1)
[2022-04-08] MEDS: INSULIN GLARGINE 100 UNITS/ML VIAL SQ SCH (21:00)
[2022-04-08] MEDS: ATORVASTATIN 20 MG TAB PO SCH (21:22)
[2022-04-09 00:08] VITALS: BP 108/62
[2022-04-09 04:00] VITALS: BP 137/72
[2022-04-09] MEDS ORDERED: CEFEPIME HCL 1 GM VIAL ONE (05:33)
[2022-04-09] MEDS: FUROSEMIDE 40 MG TAB PO SCH ×2 (05:40→16:28)
[2022-04-09] MEDS: FAMOTIDINE 20 MG/2 ML VIAL IV SCH ×2 (05:40→16:28)
[2022-04-09 06:15] LABS: ANION GAP 13.8 mmol/L (8-16); CALCIUM 8.6 mg/dL (8.4-10.2); CREATININE, SERUM 1.28 mg/dL (0.57-1.11); POTASSIUM 4.8 mmol/L (3.5-5.1)
[2022-04-09 08:06] VITALS: BP 177/76
[2022-04-09] MEDS: DOCUSATE SODIUM 100 MG CAP PO SCH ×2 (08:32→16:27)
[2022-04-09] MEDS: LISINOPRIL 20 MG TAB PO SCH (08:32)
[2022-04-09] MEDS: POTASSIUM CHLORIDE 20 MEQ TAB CR PO SCH (08:32)
[2022-04-09] MEDS: MULTIVITAMINS/MINERALS TAB PO SCH (08:32)
[2022-04-09] MEDS: ASCORBIC ACID 500 MG TAB PO SCH ×2 (08:32→16:28)
[2022-04-09] MEDS: MAGNESIUM OXIDE 400 MG TAB PO SCH ×2 (08:33→16:26)
[2022-04-09] MEDS: AMLODIPINE BESYLATE 10 MG TAB PO SCH (08:33)
[2022-04-09] MEDS: ZINC SULFATE 50 MG CAP PO SCH ×2 (08:33→16:26)
[2022-04-09] MEDS: METOLAZONE 5 MG TAB PO SCH ×2 (08:33→16:26)
[2022-04-09] MEDS: CARVEDILOL 12.5 MG TAB PO SCH ×2 (08:34→16:26)
[2022-04-09] MEDS: OYST-CAL-D 500MG TABLET PO SCH ×2 (08:35→16:27)
[2022-04-09] MEDS: HYDRALAZINE HCL 25 MG TAB PO SCH ×2 (08:35→14:04)
[2022-04-09] MEDS: ENOXAPARIN 30 MG/0.3 ML SYR SC SCH (08:35)
[2022-04-09] MEDS: INSULIN REGULAR, HUMAN 100 UNIT/1 ML SQ SCH ×3 (08:42→17:28)
[2022-04-09 08:45] VITALS: BP 177/76
[2022-04-09 12:08] VITALS: BP 162/78
[2022-04-09] MEDS ORDERED: ONDANSETRON HCL 4 MG ORAL DISINTEGRATING TAB PO PRN (13:15)
[2022-04-09 16:34] VITALS: BP 117/75
[2022-04-09] MEDS ORDERED: HYDRALAZINE HCL25 MG PO (18:37)
[2022-04-09] MEDS ORDERED: LASIX40 MG PO (18:37)
[2022-04-09] MEDS ORDERED: COREG12.5 MG PO (18:37)
[2022-04-09] MEDS ORDERED: FERROUS SULFAT325 MG PO (19:08)
[2022-04-10] MEDS ORDERED: FAMOTIDINE 20 MG TAB PO SCH (07:30)
== END 2022-04-09 20:37 | disposition home or self-care (01) | DRG 291 ==
LOC: ER 12:03 → ERHOLD 16:53 → MED/SURG 04-02 12:18 → ICU 04-03 06:29 → MED/SURG 04-07 12:43
PROVIDERS: ADMIT Internal Medicine; ATTEND Internal Medicine
PROC: 0W993ZZ Drainage of Right Pleural Cavity, Percutaneous Approach (ICD-10-PCS; principal; 2022-04-02)
PROC: 5A09357 Assistance with Respiratory Ventilation, Less than 24 Consecutive Hours, Continuous Positive Airway Pressure (ICD-10-PCS; 2022-04-03)
PROC: 5A0945A Assistance with Respiratory Ventilation, 24-96 Consecutive Hours, High Flow/Velocity Cannula (ICD-10-PCS; 2022-04-04)
DX: I13.0 Hypertensive heart and chronic kidney disease with heart failure and stage 1 through stage 4 chronic kidney disease, or unspecified chronic kidney disease (principal); I50.33 Acute on chronic diastolic (congestive) heart failure; J96.01 Acute respiratory failure with hypoxia; J90 Pleural effusion, not elsewhere classified; R18.8 Other ascites; M84.475A Pathological fracture, left foot, initial encounter for fracture; N18.2 Chronic kidney disease, stage 2 (mild); E11.22 Type 2 diabetes mellitus with diabetic chronic kidney disease; E11.65 Type 2 diabetes mellitus with hyperglycemia; Z79.4 Long term (current) use of insulin; E11.51 Type 2 diabetes mellitus with diabetic peripheral angiopathy without gangrene; E11.40 Type 2 diabetes mellitus with diabetic neuropathy, unspecified; E11.69 Type 2 diabetes mellitus with other specified complication; E78.5 Hyperlipidemia, unspecified; E11.319 Type 2 diabetes mellitus with unspecified diabetic retinopathy without macular edema; R80.8 Other proteinuria; D50.9 Iron deficiency anemia, unspecified; S81.002A Unspecified open wound, left knee, initial encounter; S81.001A Unspecified open wound, right knee, initial encounter; E88.09 Other disorders of plasma-protein metabolism, not elsewhere classified; Z20.822 Contact with and (suspected) exposure to COVID-19; Z79.899 Other long term (current) drug therapy; E83.42 Hypomagnesemia
CPT/HCPCS: 32555; 36415; 36600; 71045; 71260; 74177; 74230; 74470; 80048; 80053; 80061; 81001; 81050; 82550; 82553; 82570; 82607; 82728; 82746; 82805; 82948; 83036; 83540; 83605; 83615; 83735; 83880; 84100; 84156; 84157; 84165; 84166; 84466; 84478; 84484; 85025; 85045; 85610; 85730; 86039; 86225; 87040; 87070; 87086; 87205; 87340; 89051; 93005; 93306; 94660; 94799; 96372; 99252; 99284; J0692; J1650; J1815; J1817; J1940; J2060; J2405; J2916; J3370; J3475; J7050; J7799; P9047; Q9967

== ENCOUNTER 2022-05-09 17:33 | Inpatient (IN) | payer OTHER ==
[~2022-05-09] VITALS: Ht 144.8 cm; Wt 76.5 kg
[~2022-05-09 17:33] MED LIST changes: +COREG12.5 MG PO; +FERROUS SULFAT325 MG PO; +HYDRALAZINE HCL25 MG PO; +LASIX40 MG PO
[2022-05-09 18:16] LABS: BASOPHILS % 0.4 % (0.0-1.0); EOSINOPHILS # (AUTO) 0.1 (0.0-0.4); EOSINOPHILS % 2.4 % (0.0-6.0); HEMATOCRIT 28.7 % (34.2-44.1); HEMOGLOBIN 9.1 g/dL (12.0-16.0); LYMPHOCYTES # (AUTO) 1.3 (1.0-3.2); LYMPHOCYTES % 26.3 % (18.0-39.1); MEAN CORPUSCULAR HEMOGLOBIN 26.8 pg (28-32); MEAN CORPUSCULAR HGB CONC 31.7 g/dL (31-35); MEAN CORPUSCULAR VOLUME 84.7 fL (81-99); MONOCYTES # (AUTO) 0.5 (0.2-0.8); NEUTROPHILS # (AUTO) 3.1 (2.1-6.9); NEUTROPHILS % 61.7 % (38.7-80.0); PLATELET COUNT 276 x10e3/uL (140-360); RED BLOOD COUNT 3.39 x10e6/uL (3.6-5.1); RED CELL DISTRIBUTION WIDTH 15.5 % (11.7-14.4)
[2022-05-09 18:33] LABS: ALBUMIN 2.6 g/dL (3.5-5.0); ALBUMIN/GLOBULIN RATIO 0.7 (0.8-2.0); ANION GAP 15.4 mmol/L (8-16); CALCIUM 8.9 mg/dL (8.4-10.2); CREATININE, SERUM 2.08 mg/dL (0.57-1.11)
[2022-05-09 18:34] LABS: POTASSIUM 5.4 mmol/L (3.5-5.1)
[2022-05-09 18:41] LABS: CREATINE KINASE MB 9.2 ng/mL (0-5.0)
[2022-05-09] MEDS ORDERED: SODIUM CHLORIDE 0.9% 500ML 500 ML IV STA (18:49)
[2022-05-09 18:53] LABS: CLARITY,URINE CLEAR (CLEAR); COLOR,URINE YELLOW (YELLOW); LEUKOCYTE ESTERASE ,URINE NEGATIVE (NEGATIVE); NITRITE,URINE NEGATIVE (NEGATIVE); PROTEIN,URINE DIPSTICK 2+ (NEGATIVE)
[2022-05-09 18:54] LABS: KETONES,URINE NEGATIVE (NEGATIVE); URINE UROBILINOGEN 0.2 mg/dL (0.2 - 1)
[2022-05-09 18:56] LABS: AMPHETAMINES SCREEN,URINE NEGATIVE (NEGATIVE); BENZODIAZEPINES SCREEN,URINE NEGATIVE (NEGATIVE); PHENCYCLIDINE SCREEN,URINE NEGATIVE (NEGATIVE)
[2022-05-09] MEDS ORDERED: Morphine 4mg INJECTION 4 MG/ML INJ IV PRN (19:00)
[2022-05-09] MEDS ORDERED: SODIUM CHLORIDE FLUSH 10 ML SYR INJ PRN (19:00)
[2022-05-09] MEDS ORDERED: ONDANSETRON HCL INJ 2MG/ML 2ML 2 MG/ML VIAL IV PRN (19:00)
[2022-05-09 19:03] LABS: BACTERIA,URINE RARE /HPF; EPITHELIAL CELLS,URINE FEW /LPF; RENAL EPITHELIAL CELLS,URINE RARE; TRANSITIONAL EPI CELLS,URINE FEW
[2022-05-09] MEDS ORDERED: DEXTROSE 50% SYRINGE 50 ML IV STA (19:05)
[2022-05-09] MEDS ORDERED: FUROSEMIDE INJ 10 MG/ML 4 ML VIAL IV STA (19:41)
[2022-05-09] MEDS ORDERED: DEXTROSE 50% SYRINGE 50 ML IV PRN (19:45)
[2022-05-09] MEDS ORDERED: FUROSEMIDE INJ 10 MG/ML 2 ML VIAL ONE (19:55)
[2022-05-09] MEDS ORDERED: IOPAMIDOL 370 MG/ML 100 ML INFUS..BTL INJ ONE (20:04)
[2022-05-09] MEDS ORDERED: ALBUTEROL SULF 0.083% NEB SOLN 3 ML NEB NEB STA (20:20)
[2022-05-09 20:59] VITALS: BP 108/74
[2022-05-09 21:00] VITALS: BP 108/74
[2022-05-10] VITALS (8 sets, daily range): BP systolic 111–147; BP diastolic 69–91
[2022-05-10] MEDS ORDERED: SODIUM CHLORIDE 0.9% 250ML 250 ML ONE (01:34)
[2022-05-10] MEDS ORDERED: IPRATROPIUM BROMIDE 0.02% 2.5 ML NEB ONE (02:10)
[2022-05-10] MEDS ORDERED: ALBUTEROL SULF 0.083% NEB SOLN 3 ML NEB ONE (02:10)
[2022-05-10 02:25] LABS: CREATINE KINASE MB 8.1 ng/mL (0-5.0)
[2022-05-10] MEDS ORDERED: ALBUTEROL/IPRATROPIUM 3 ML NEB NEB SCH (03:00)
[2022-05-10] MEDS: ALBUTEROL SULF 0.083% NEB SOLN 3 ML NEB NEB SCH ×5 (06:30→23:52)
[2022-05-10] MEDS: IPRATROPIUM BROMIDE 0.02% 2.5 ML NEB NEB SCH ×5 (06:30→23:52)
[2022-05-10 08:08] LABS: BASOPHILS % 0.6 % (0.0-1.0); EOSINOPHILS # (AUTO) 0.1 (0.0-0.4); EOSINOPHILS % 1.8 % (0.0-6.0); HEMATOCRIT 27.4 % (34.2-44.1); HEMOGLOBIN 8.7 g/dL (12.0-16.0); LYMPHOCYTES # (AUTO) 1.9 (1.0-3.2); LYMPHOCYTES % 38.1 % (18.0-39.1); MEAN CORPUSCULAR HEMOGLOBIN 26.5 pg (28-32); MEAN CORPUSCULAR HGB CONC 31.8 g/dL (31-35); MEAN CORPUSCULAR VOLUME 83.5 fL (81-99); MONOCYTES # (AUTO) 0.4 (0.2-0.8); MONOCYTES % 7.5 % (4.4-11.3); NEUTROPHILS # (AUTO) 2.6 (2.1-6.9); NEUTROPHILS % 51.8 % (38.7-80.0); PLATELET COUNT 263 x10e3/uL (140-360); RED BLOOD COUNT 3.28 x10e6/uL (3.6-5.1); RED CELL DISTRIBUTION WIDTH 15.5 % (11.7-14.4)
[2022-05-10 08:21] LABS: INR 0.99; PROTHROMBIN TIME 13.6 seconds (11.9-14.5)
[2022-05-10 08:22] LABS: PARTIAL THROMBOPLASTIN TIME 29.4 seconds (23.8-35.5)
[2022-05-10 08:30] LABS: ALBUMIN 2.5 g/dL (3.5-5.0); ALBUMIN/GLOBULIN RATIO 0.6 (0.8-2.0); CALCIUM 8.9 mg/dL (8.4-10.2); CREATININE, SERUM 1.94 mg/dL (0.57-1.11)
[2022-05-10] MEDS ORDERED: ONDANSETRON HCL 4 MG ORAL DISINTEGRATING TAB PO PRN (08:30)
[2022-05-10 09:00] LABS: CREATINE KINASE MB 5.8 ng/mL (0-5.0)
[2022-05-10] MEDS ORDERED: FUROSEMIDE 40 MG TAB PO SCH (09:00)
[2022-05-10] MEDS: FERROUS SULFATE 325 MG TAB PO SCH (10:16)
[2022-05-10] MEDS: CARVEDILOL 12.5 MG TAB PO SCH ×2 (10:17→20:47)
[2022-05-10] MEDS ORDERED: ACETAMINOPHEN 325 MG TAB PO PRN (10:30)
[2022-05-10] MEDS ORDERED: DEXTROSE 50% SYRINGE 50 ML IV PRN (10:30)
[2022-05-10] MEDS: INSULIN REGULAR, HUMAN 100 UNIT/1 ML SQ SCH ×3 (11:30→21:00)
[2022-05-10 14:40] LABS: BODY FLUID APPEARANCE SL.CLOUDY; BODY FLUID COLOR YELLOW; BODY FLUID TYPE PLEURAL; RBC,BODY FLUID < 2000 cells/uL; WBC,BODY FLUID 273 cells/uL
[2022-05-10 18:46] LABS: LYMPHOCYTES,BODY FLUID 33 %; MONO/MACROPHG,BODY FLUID 52 %; NEUTROPHILS,BODY FLUID 3 %; OTHER CELLS,BODY FLUID 12 %
[2022-05-10] MEDS: FUROSEMIDE INJ 10 MG/ML 4 ML VIAL IV SCH (20:46)
[2022-05-10] MEDS ORDERED: ATORVASTATIN 40 MG TAB PO SCH (21:00)
[2022-05-11] VITALS (7 sets, daily range): BP systolic 142–158; BP diastolic 72–95
[2022-05-11] MEDS: ALBUTEROL SULF 0.083% NEB SOLN 3 ML NEB NEB SCH ×6 (02:55→23:35)
[2022-05-11] MEDS: IPRATROPIUM BROMIDE 0.02% 2.5 ML NEB NEB SCH ×6 (02:55→23:35)
[2022-05-11 06:47] LABS: BASOPHILS # (AUTO) 0.1 (0.0-0.1); BASOPHILS % 0.9 % (0.0-1.0); EOSINOPHILS # (AUTO) 0.1 (0.0-0.4); EOSINOPHILS % 2.1 % (0.0-6.0); HEMATOCRIT 29.3 % (34.2-44.1); HEMOGLOBIN 9.3 g/dL (12.0-16.0); LYMPHOCYTES # (AUTO) 2.3 (1.0-3.2); LYMPHOCYTES % 33.6 % (18.0-39.1); MEAN CORPUSCULAR HEMOGLOBIN 26.9 pg (28-32); MEAN CORPUSCULAR HGB CONC 31.7 g/dL (31-35); MEAN CORPUSCULAR VOLUME 84.7 fL (81-99); MONOCYTES # (AUTO) 0.5 (0.2-0.8); MONOCYTES % 7.7 % (4.4-11.3); NEUTROPHILS # (AUTO) 3.8 (2.1-6.9); NEUTROPHILS % 55.6 % (38.7-80.0); PLATELET COUNT 288 x10e3/uL (140-360); RED BLOOD COUNT 3.46 x10e6/uL (3.6-5.1); RED CELL DISTRIBUTION WIDTH 15.8 % (11.7-14.4)
[2022-05-11 07:13] LABS: ALBUMIN 2.5 g/dL (3.5-5.0); ALBUMIN/GLOBULIN RATIO 0.6 (0.8-2.0); ANION GAP 13.5 mmol/L (8-16); CALCIUM 9.3 mg/dL (8.4-10.2); CREATININE, SERUM 2.07 mg/dL (0.57-1.11); POTASSIUM 4.5 mmol/L (3.5-5.1)
[2022-05-11] MEDS: INSULIN REGULAR, HUMAN 100 UNIT/1 ML SQ SCH ×4 (07:30→20:43)
[2022-05-11] MEDS ORDERED: INS LISP PRO/LISP HUMAN 75/25 100 UNITS/ML VIAL SC SCH (07:30)
[2022-05-11] MEDS: FERROUS SULFATE 325 MG TAB PO SCH (09:45)
[2022-05-11] MEDS: FUROSEMIDE INJ 10 MG/ML 4 ML VIAL IV SCH ×2 (09:48→17:06)
[2022-05-11] MEDS: CARVEDILOL 12.5 MG TAB PO SCH ×2 (09:48→17:05)
[2022-05-11] MEDS: COLLAGENASE OINTMENT 30 GM TUBE TP SCH (10:20)
[2022-05-11] MEDS: INS LISP PRO/LISP HUMAN 75/25 100 UNITS/ML VIAL SC SCH ×3 (11:57→20:42)
[2022-05-11] MEDS: HYDRALAZINE HCL 100 MG TABLET PO SCH ×2 (17:05→21:35)
[2022-05-11] MEDS: HEPARIN SOD (PORCINE) 5,000 UNIT/ML VIAL SC SCH (21:42)
[2022-05-11 23:11] LABS: TOTAL PROTEIN 24HR, URINE 1462.5 mg/24hr (50-100)
[2022-05-12 02:44] VITALS: BP 138/72
[2022-05-12] MEDS: IPRATROPIUM BROMIDE 0.02% 2.5 ML NEB NEB SCH ×6 (03:06→23:15)
[2022-05-12] MEDS: ALBUTEROL SULF 0.083% NEB SOLN 3 ML NEB NEB SCH ×6 (03:06→23:15)
[2022-05-12 07:21] LABS: BASOPHILS % 0.6 % (0.0-1.0); EOSINOPHILS # (AUTO) 0.2 (0.0-0.4); EOSINOPHILS % 2.8 % (0.0-6.0); HEMOGLOBIN 9.2 g/dL (12.0-16.0); LYMPHOCYTES # (AUTO) 3.1 (1.0-3.2); LYMPHOCYTES % 47.7 % (18.0-39.1); MEAN CORPUSCULAR HEMOGLOBIN 26.8 pg (28-32); MEAN CORPUSCULAR HGB CONC 31.7 g/dL (31-35); MEAN CORPUSCULAR VOLUME 84.5 fL (81-99); MONOCYTES # (AUTO) 0.7 (0.2-0.8); MONOCYTES % 11.4 % (4.4-11.3); NEUTROPHILS # (AUTO) 2.4 (2.1-6.9); NEUTROPHILS % 37.3 % (38.7-80.0); PLATELET COUNT 262 x10e3/uL (140-360); RED BLOOD COUNT 3.43 x10e6/uL (3.6-5.1); RED CELL DISTRIBUTION WIDTH 15.7 % (11.7-14.4)
[2022-05-12] MEDS: INS LISP PRO/LISP HUMAN 75/25 100 UNITS/ML VIAL SC SCH ×4 (07:30→21:00)
[2022-05-12] MEDS: INSULIN REGULAR, HUMAN 100 UNIT/1 ML SQ SCH ×4 (07:30→21:00)
[2022-05-12 07:42] LABS: ALBUMIN 2.3 g/dL (3.5-5.0); ALBUMIN/GLOBULIN RATIO 0.6 (0.8-2.0); ANION GAP 12.2 mmol/L (8-16); CALCIUM 9.3 mg/dL (8.4-10.2); CREATININE, SERUM 1.76 mg/dL (0.57-1.11); POTASSIUM 4.2 mmol/L (3.5-5.1)
[2022-05-12 08:08] VITALS: BP 156/78
[2022-05-12 08:16] VITALS: BP 156/78
[2022-05-12] MEDS: CARVEDILOL 12.5 MG TAB PO SCH ×2 (08:59→17:22)
[2022-05-12] MEDS: HYDRALAZINE HCL 100 MG TABLET PO SCH ×3 (08:59→20:49)
[2022-05-12] MEDS: FERROUS SULFATE 325 MG TAB PO SCH (08:59)
[2022-05-12] MEDS: HEPARIN SOD (PORCINE) 5,000 UNIT/ML VIAL SC SCH ×2 (09:00→20:55)
[2022-05-12] MEDS: FUROSEMIDE INJ 10 MG/ML 4 ML VIAL IV SCH ×2 (09:00→17:23)
[2022-05-12] MEDS: COLLAGENASE OINTMENT 30 GM TUBE TP SCH (09:01)
[2022-05-12 11:53] VITALS: BP 160/77
[2022-05-12 15:56] LABS: CALCIUM 9.8 mg/dL (8.4-10.2); CREATININE, SERUM 1.78 mg/dL (0.57-1.11)
[2022-05-12 16:08] VITALS: BP 131/86
[2022-05-12 20:00] VITALS: BP 169/83
[2022-05-13 00:51] VITALS: BP 148/87
[2022-05-13] MEDS: ALBUTEROL SULF 0.083% NEB SOLN 3 ML NEB NEB SCH ×3 (03:00→10:30)
[2022-05-13] MEDS: IPRATROPIUM BROMIDE 0.02% 2.5 ML NEB NEB SCH ×3 (03:00→10:30)
[2022-05-13 04:33] VITALS: BP 137/76
[2022-05-13] MEDS: INS LISP PRO/LISP HUMAN 75/25 100 UNITS/ML VIAL SC SCH ×2 (07:30→11:45)
[2022-05-13] MEDS: INSULIN REGULAR, HUMAN 100 UNIT/1 ML SQ SCH ×2 (07:30→11:46)
[2022-05-13 08:24] LABS: ANION GAP 14.9 mmol/L (8-16); CALCIUM 9.2 mg/dL (8.4-10.2); CREATININE, SERUM 1.73 mg/dL (0.57-1.11); POTASSIUM 3.9 mmol/L (3.5-5.1)
[2022-05-13 08:31] VITALS: BP 137/76
[2022-05-13 09:00] VITALS: BP 103/91
[2022-05-13] MEDS: FUROSEMIDE INJ 10 MG/ML 4 ML VIAL IV SCH (09:46)
[2022-05-13] MEDS: HYDRALAZINE HCL 100 MG TABLET PO SCH (09:47)
[2022-05-13] MEDS: FERROUS SULFATE 325 MG TAB PO SCH (09:47)
[2022-05-13] MEDS: CARVEDILOL 12.5 MG TAB PO SCH (09:47)
[2022-05-13] MEDS: HEPARIN SOD (PORCINE) 5,000 UNIT/ML VIAL SC SCH (09:48)
[2022-05-13] MEDS: COLLAGENASE OINTMENT 30 GM TUBE TP SCH (09:50)
[2022-05-13] MEDS ORDERED: LASIX40 MG PO (11:03)
[2022-05-13] MEDS ORDERED: BLOOD GLUCOSE1 EAC5 EXT (11:03)
== END 2022-05-13 13:32 | disposition home or self-care (01) | DRG 186 ==
LOC: ER 17:39 → ERHOLD 18:55 → MED/SURG2 20:27 → OBSVTOIN 05-11 13:32
PROVIDERS: ADMIT Internal Medicine; ATTEND Internal Medicine
PROC: 0W993ZZ Drainage of Right Pleural Cavity, Percutaneous Approach (ICD-10-PCS; principal; 2022-04-30)
DX: J90 Pleural effusion, not elsewhere classified (principal); I50.33 Acute on chronic diastolic (congestive) heart failure; J18.9 Pneumonia, unspecified organism; N17.9 Acute kidney failure, unspecified; I13.0 Hypertensive heart and chronic kidney disease with heart failure and stage 1 through stage 4 chronic kidney disease, or unspecified chronic kidney disease; N04.9 Nephrotic syndrome with unspecified morphologic changes; E87.5 Hyperkalemia; E11.621 Type 2 diabetes mellitus with foot ulcer; E11.649 Type 2 diabetes mellitus with hypoglycemia without coma; E11.40 Type 2 diabetes mellitus with diabetic neuropathy, unspecified; N18.30 Chronic kidney disease, stage 3 unspecified; E11.22 Type 2 diabetes mellitus with diabetic chronic kidney disease; D63.1 Anemia in chronic kidney disease; E78.00 Pure hypercholesterolemia, unspecified; E11.21 Type 2 diabetes mellitus with diabetic nephropathy; E11.319 Type 2 diabetes mellitus with unspecified diabetic retinopathy without macular edema; Z79.4 Long term (current) use of insulin
CPT/HCPCS: 0223U; 32555; 36415; 71045; 71260; 74470; 80048; 80053; 80307; 81001; 81050; 82550; 82553; 82948; 83615; 83690; 83880; 84156; 84157; 84478; 84484; 85025; 85379; 85610; 85730; 87070; 87205; 89051; 93005; 93306; 94799; 99252; 99284; G0378; J1644; J1815; J1940; J2543; J7040; J7050; J7799; Q9967

== ENCOUNTER 2022-06-26 07:00 | Inpatient (IN) | payer OTHER ==
[~2022-06-26] VITALS: Ht 144.8 cm; Wt 76.2 kg
[~2022-06-26 07:00] MED LIST changes: +BLOOD GLUCOSE1 EAC5 EXT
[2022-06-26 07:29] LABS: BASOPHILS % 0.3 % (0.0-1.0); EOSINOPHILS % 0.2 % (0.0-6.0); HEMATOCRIT 37.4 % (34.2-44.1); HEMOGLOBIN 12.8 g/dL (12.0-16.0); LYMPHOCYTES # (AUTO) 2.7 (1.0-3.2); MEAN CORPUSCULAR HEMOGLOBIN 27.1 pg (28-32); MEAN CORPUSCULAR HGB CONC 34.2 g/dL (31-35); MEAN CORPUSCULAR VOLUME 79.1 fL (81-99); MONOCYTES # (AUTO) 0.8 (0.2-0.8); MONOCYTES % 7.3 % (4.4-11.3); NEUTROPHILS # (AUTO) 7.1 (2.1-6.9); PLATELET COUNT 291 x10e3/uL (140-360); RED BLOOD COUNT 4.73 x10e6/uL (3.6-5.1); RED CELL DISTRIBUTION WIDTH 14.4 % (11.7-14.4)
[2022-06-26 07:41] LABS: INR 0.88; PARTIAL THROMBOPLASTIN TIME 26.3 seconds (23.8-35.5); PROTHROMBIN TIME 12.4 seconds (11.9-14.5)
[2022-06-26 07:49] LABS: CLARITY,URINE CLEAR (CLEAR); COLOR,URINE YELLOW (YELLOW); KETONES,URINE NEGATIVE (NEGATIVE); LEUKOCYTE ESTERASE ,URINE NEGATIVE (NEGATIVE); NITRITE,URINE NEGATIVE (NEGATIVE); PROTEIN,URINE DIPSTICK >=300 (NEGATIVE); URINE UROBILINOGEN 0.2 mg/dL (0.2 - 1)
[2022-06-26 07:50] LABS: ALBUMIN 2.8 g/dL (3.5-5.0); ALBUMIN/GLOBULIN RATIO 0.5 (0.8-2.0); ANION GAP 13.5 mmol/L (8-16); CALCIUM 9.3 mg/dL (8.4-10.2); CREATININE, SERUM 1.5 mg/dL (0.57-1.11); MAGNESIUM 2.7 MG/DL (1.3-2.1); POTASSIUM 3.5 mmol/L (3.5-5.1)
[2022-06-26] MEDS ORDERED: IOPAMIDOL 370 MG/ML 100 ML INFUS..BTL INJ ONE (07:55)
[2022-06-26] MEDS ORDERED: SODIUM CHLORIDE 0.9% 500ML 500 ML IV ONE (08:00)
[2022-06-26 08:08] LABS: BACTERIA,URINE FEW /HPF; WBC,URINE (MAN) 0-5 /HPF (0-5)
[2022-06-26] MEDS ORDERED: Morphine 2mg Syringe 2 MG/ML SYR IV PRN (09:30)
[2022-06-26] MEDS ORDERED: ONDANSETRON HCL INJ 2MG/ML 2ML 2 MG/ML VIAL IV PRN (09:30)
[2022-06-26] MEDS ORDERED: ACETAMINOPHEN 325 MG TAB PO PRN (11:00)
[2022-06-26] MEDS ORDERED: DEXTROSE 50% SYRINGE 50 ML IV PRN (11:00)
[2022-06-26] MEDS: INSULIN REGULAR, HUMAN 100 UNIT/1 ML SQ SCH ×3 (11:30→20:13)
[2022-06-26] MEDS: SODIUM CHLORIDE 0.9% 1000ML 1,000 ML IV SCH ×2 (14:11→22:20)
[2022-06-26 15:08] VITALS: BP 139/79; PULSE 78; RESP 17; TEMP 97.9; O2SAT 100
[2022-06-26 15:10] VITALS: BP 139/79; PULSE 78; RESP 17; TEMP 97.9; O2SAT 100
[2022-06-26 15:25] VITALS: BP 139/79; PULSE 78; RESP 17; TEMP 97.9; O2SAT 100
[2022-06-26 16:00] VITALS: BP 139/79; PULSE 78; RESP 17; TEMP 97.9; O2SAT 100
[2022-06-26] MEDS: CARVEDILOL 12.5 MG TAB PO SCH (18:18)
[2022-06-26] MEDS ORDERED: LISINOPRIL10 MG PO (19:21)
[2022-06-26] MEDS ORDERED: FARXIGA10 MG PO (19:22)
[2022-06-26] MEDS ORDERED: FARXIGA10 MG (19:23)
[2022-06-26] MEDS: ATORVASTATIN 40 MG TAB PO SCH (20:13)
[2022-06-26 20:42] VITALS: BP 126/73; PULSE 75; RESP 18; TEMP 97.6; O2SAT 96
[2022-06-26 21:44] VITALS: BP 126/73; PULSE 75; RESP 18; TEMP 97.6; O2SAT 96
[2022-06-27 00:38] VITALS: BP 140/78; PULSE 69; RESP 18; TEMP 97.6; O2SAT 100
[2022-06-27 04:56] VITALS: BP 136/79; PULSE 67; RESP 17; TEMP 97.1; O2SAT 100
[2022-06-27 05:32] LABS: BASOPHILS % 0.3 % (0.0-1.0); EOSINOPHILS # (AUTO) 0.1 (0.0-0.4); EOSINOPHILS % 0.8 % (0.0-6.0); LYMPHOCYTES # (AUTO) 4.4 (1.0-3.2); LYMPHOCYTES % 46.3 % (18.0-39.1); MEAN CORPUSCULAR HGB CONC 33.3 g/dL (31-35); MEAN CORPUSCULAR VOLUME 80.9 fL (81-99); MONOCYTES # (AUTO) 0.8 (0.2-0.8); MONOCYTES % 8.4 % (4.4-11.3); NEUTROPHILS # (AUTO) 4.2 (2.1-6.9); PLATELET COUNT 262 x10e3/uL (140-360); RED BLOOD COUNT 4.08 x10e6/uL (3.6-5.1); RED CELL DISTRIBUTION WIDTH 14.7 % (11.7-14.4)
[2022-06-27 05:57] LABS: CHOL/HDL RATIO 3.8 (3.0-3.6)
[2022-06-27 05:58] LABS: ALBUMIN 2.5 g/dL (3.5-5.0); ALBUMIN/GLOBULIN RATIO 0.6 (0.8-2.0); ANION GAP 10.9 mmol/L (8-16); CALCIUM 8.8 mg/dL (8.4-10.2); CREATININE, SERUM 1.05 mg/dL (0.57-1.11); POTASSIUM 2.9 mmol/L (3.5-5.1)
[2022-06-27] MEDS: CARVEDILOL 12.5 MG TAB PO SCH ×2 (08:45→17:42)
[2022-06-27] MEDS: AMLODIPINE BESYLATE 10 MG TAB PO SCH (08:46)
[2022-06-27] MEDS: FERROUS SULFATE 325 MG TAB PO SCH (08:46)
[2022-06-27] MEDS: INSULIN REGULAR, HUMAN 100 UNIT/1 ML SQ SCH ×4 (08:52→20:57)
[2022-06-27 09:00] VITALS: BP 158/75; PULSE 71; RESP 16; TEMP 97.8; O2SAT 100
[2022-06-27] MEDS ORDERED: POTASSIUM CHLORIDE 10MEQ EA PO ONE ×2 (11:45→12:45)
[2022-06-27 12:00] VITALS: BP 136/72; PULSE 64; RESP 20; TEMP 98.1; O2SAT 97
[2022-06-27 17:13] VITALS: BP 142/75; PULSE 69; RESP 19; TEMP 98; O2SAT 100
[2022-06-27 20:00] VITALS: BP 148/77; PULSE 69; RESP 18; TEMP 98.1; O2SAT 100
[2022-06-27] MEDS: ATORVASTATIN 40 MG TAB PO SCH (20:57)
[2022-06-27] MEDS: SODIUM CHLORIDE 0.9% 1000ML 1,000 ML IV SCH (20:57)
[2022-06-28] VITALS: BP 144/79; PULSE 69; RESP 17; TEMP 98.6; O2SAT 99
[2022-06-28 04:00] VITALS: BP 174/77; PULSE 74; RESP 17; TEMP 98; O2SAT 100
[2022-06-28 05:54] LABS: BASOPHILS # (AUTO) 0.1 (0.0-0.1); BASOPHILS % 0.7 % (0.0-1.0); EOSINOPHILS # (AUTO) 0.1 (0.0-0.4); EOSINOPHILS % 1.4 % (0.0-6.0); HEMATOCRIT 36.6 % (34.2-44.1); HEMOGLOBIN 11.6 g/dL (12.0-16.0); LYMPHOCYTES # (AUTO) 3.8 (1.0-3.2); LYMPHOCYTES % 41.3 % (18.0-39.1); MEAN CORPUSCULAR HEMOGLOBIN 26.6 pg (28-32); MEAN CORPUSCULAR HGB CONC 31.7 g/dL (31-35); MEAN CORPUSCULAR VOLUME 83.9 fL (81-99); MONOCYTES # (AUTO) 0.7 (0.2-0.8); MONOCYTES % 7.3 % (4.4-11.3); NEUTROPHILS # (AUTO) 4.5 (2.1-6.9); PLATELET COUNT 278 x10e3/uL (140-360); RED BLOOD COUNT 4.36 x10e6/uL (3.6-5.1)
[2022-06-28] MEDS: CARVEDILOL 12.5 MG TAB PO SCH ×2 (06:15→08:42)
[2022-06-28] MEDS: AMLODIPINE BESYLATE 10 MG TAB PO SCH (06:17)
[2022-06-28 06:29] LABS: ANION GAP 11.7 mmol/L (8-16); CALCIUM 9.1 mg/dL (8.4-10.2); CREATININE, SERUM 0.86 mg/dL (0.57-1.11); POTASSIUM 4.7 mmol/L (3.5-5.1)
[2022-06-28 08:10] VITALS: BP 131/65; PULSE 69; RESP 19; TEMP 97; O2SAT 100
[2022-06-28] MEDS: FERROUS SULFATE 325 MG TAB PO SCH (08:42)
[2022-06-28] MEDS: INSULIN REGULAR, HUMAN 100 UNIT/1 ML SQ SCH ×2 (08:45→13:00)
[2022-06-28 08:51] VITALS: BP 131/74; PULSE 69; RESP 19; TEMP 97; O2SAT 100
[2022-06-28] MEDS ORDERED: ONDANSETRON HCL 4 MG ORAL DISINTEGRATING TAB PO PRN (10:15)
[2022-06-28 12:32] VITALS: BP 110/69; PULSE 63; RESP 20; TEMP 97.7; O2SAT 100
== END 2022-06-28 13:09 | disposition home or self-care (01) | DRG 439 ==
LOC: ER 07:05 → ERHOLD 09:17 → MED/SURG3 15:04
PROVIDERS: ADMIT Internal Medicine; ATTEND Internal Medicine
DX: K85.90 Acute pancreatitis without necrosis or infection, unspecified (principal); E87.1 Hypo-osmolality and hyponatremia; N17.9 Acute kidney failure, unspecified; I13.0 Hypertensive heart and chronic kidney disease with heart failure and stage 1 through stage 4 chronic kidney disease, or unspecified chronic kidney disease; I50.30 Unspecified diastolic (congestive) heart failure; E86.0 Dehydration; E78.00 Pure hypercholesterolemia, unspecified; E11.22 Type 2 diabetes mellitus with diabetic chronic kidney disease; D50.9 Iron deficiency anemia, unspecified; N18.30 Chronic kidney disease, stage 3 unspecified; Z20.822 Contact with and (suspected) exposure to COVID-19; Z79.4 Long term (current) use of insulin
CPT/HCPCS: 0223U; 36415; 71045; 74177; 80048; 80053; 80061; 81001; 82948; 83690; 83735; 83880; 84484; 85025; 85610; 85730; 87086; 93005; 99252; 99284; J0696; J7030; J7040; Q9967

== ENCOUNTER 2023-03-10 16:48 | Emergency (ER) | payer OTHER ==
[~2023-03-10] VITALS: Ht 144.8 cm; Wt 76.2 kg
[~2023-03-10 16:48] MED LIST changes: +FARXIGA10 MG; +FARXIGA10 MG PO; +NAPROXEN250 MG PO
[2023-03-10 17:47] LABS: BASOPHILS % 0.3 % (0.0-1.0); HEMATOCRIT 33.5 % (34.2-44.1); HEMOGLOBIN 10.7 g/dL (12.0-16.0); LYMPHOCYTES # (AUTO) 1.5 (1.0-3.2); LYMPHOCYTES % 21.1 % (18.0-39.1); MEAN CORPUSCULAR HEMOGLOBIN 28.5 pg (28-32); MEAN CORPUSCULAR HGB CONC 31.9 g/dL (31-35); MEAN CORPUSCULAR VOLUME 89.3 fL (81-99); MONOCYTES # (AUTO) 0.7 (0.2-0.8); MONOCYTES % 9.5 % (4.4-11.3); NEUTROPHILS # (AUTO) 4.9 (2.1-6.9); NEUTROPHILS % 68.5 % (38.7-80.0); PLATELET COUNT 256 x10e3/uL (140-360); RED BLOOD COUNT 3.75 x10e6/uL (3.6-5.1); RED CELL DISTRIBUTION WIDTH 13.7 % (11.7-14.4); WHITE BLOOD COUNT 7.19 x10e3/uL (4.8-10.8)
[2023-03-10 17:59] LABS: ALBUMIN 1.5 g/dL (3.5-5.0); ALBUMIN/GLOBULIN RATIO 0.4 (0.8-2.0); ANION GAP 12.1 mmol/L (8-16); BILIRUBIN,TOTAL 0.2 mg/dL (0.2-1.2); CALCIUM 8.1 mg/dL (8.4-10.2); CREATININE, SERUM 1.57 mg/dL (0.57-1.11); POTASSIUM 3.1 mmol/L (3.5-5.1); TOTAL PROTEIN 5.4 g/dL (6.5-8.1)
[2023-03-10 18:29] LABS: CLARITY,URINE CLOUDY (CLEAR); COLOR,URINE YELLOW (YELLOW); LEUKOCYTE ESTERASE ,URINE NEGATIVE (NEGATIVE); PH,URINE 5.5 (5 - 7)
[2023-03-10 18:30] LABS: BILIRUBIN,URINE NEGATIVE (NEGATIVE); GLUCOSE, URINE 500 (NEGATIVE); KETONES,URINE NEGATIVE (NEGATIVE); NITRITE,URINE NEGATIVE (NEGATIVE); PROTEIN,URINE DIPSTICK >=300 (NEGATIVE); URINE UROBILINOGEN 0.2 mg/dL (0.2 - 1)
[2023-03-10 18:33] LABS: BACTERIA,URINE MODERATE /HPF; EPITHELIAL CELLS,URINE FEW /LPF; WBC,URINE (MAN) 21-50 /HPF (0-5)
[2023-03-10 18:39] VITALS: BP 152/98; PULSE 69; RESP 18; TEMP 98.6; O2SAT 100
[2023-03-10] MEDS ORDERED: ONDANSETRON ODT4 MG SL (19:35)
[2023-03-10] MEDS ORDERED: CEFDINIR300 MG PO (19:35)
== END 2023-03-10 19:43 | disposition home or self-care (01) ==
LOC: ER 16:59
DX: R50.9 Fever, unspecified (principal); J06.9 Acute upper respiratory infection, unspecified; R05.9 Cough, unspecified; N39.0 Urinary tract infection, site not specified; I10 Essential (primary) hypertension; E11.65 Type 2 diabetes mellitus with hyperglycemia; N28.9 Disorder of kidney and ureter, unspecified; I50.9 Heart failure, unspecified; D64.9 Anemia, unspecified; E78.5 Hyperlipidemia, unspecified; R94.31 Abnormal electrocardiogram [ECG] [EKG]
CPT/HCPCS: 36415; 71045; 80053; 81001; 85025; 87400; 93005; 99284; J0696; U0002